=== PATIENT | female | born 1995 | race Caucasian/White ===

== ENCOUNTER 2017-11-25 08:44 | Emergency (ER) | payer MEDICAID ==
[~2017-11-25] VITALS: Ht 157.5 cm; Wt 68.0 kg
[2017-11-25] MEDS ORDERED: KETOROLAC 30MG/ML VIAL IV ONE (10:15)
[2017-11-25] MEDS ORDERED: PIPERACILLIN/TAZOBACTAM 3.375GM/50ML PREMIX IV ONE (10:15)
[2017-11-25] MEDS ORDERED: CEFTRIAXONE SODIUM 1 G/VIAL IM ONE (10:15)
[2017-11-25] MEDS ORDERED: VANCOMYCIN 1 G PREMIX 200 ML IV SCH ×2 (10:45→15:30)
[2017-11-25 10:46] LABS: BASOPHILS % 0.1 % (0.0-2.0); HEMATOCRIT. 37.8 % (36.0-48.0); LYMPHOCYTES % 8.2 % (20.0-50.0); MEAN CORPUSCULAR HEMOGLOBIN 30.6 pg (28.0-32.0); MEAN CORPUSCULAR VOLUME 88.9 fL (81.0-99.0); MONOCYTES % 8.6 % (2.0-8.0); NEUTROPHILS % 83.1 % (40.0-76.0); PLATELET 324 x1000/uL (130-400); RED BLOOD CELL COUNT 4.25 mill/uL (4.2-5.4); RED CELL DISTRIBUTION WIDTH 13.3 % (11.6-14.6)
[2017-11-25 10:59] LABS: CHLORIDE 102 mEq/L (98-107)
[2017-11-25 11:09] LABS: CLARITY URINE CLEAR (CLEAR); COLOR URINE YELLOW (YELLOW); KETONES URINE 2+ (NEGATIVE); LEUKOCYTE ESTERASE URINE 1+ (NEGATIVE); NITRITE URINE NEGATIVE (NEGATIVE); OCCULT BLOOD URINE 2+ (NEGATIVE); PROTEIN URINE TRACE (NEGATIVE); SPECIFIC GRAVITY URINE 1.021 (1.005-1.030)
[2017-11-25 11:21] LABS: HCG SCREEN NEGATIVE
[2017-11-25 12:01] LABS: *AMPHETAMINES SCREEN URINE NEGATIVE (NEGATIVE); *BARBITURATES SCREEN URINE NEGATIVE (NEGATIVE); *BENZODIAZEPINES SCREEN URINE NEGATIVE (NEGATIVE); *COCAINE SCREEN URINE NEGATIVE (NEGATIVE); METHADONE URINE SCREEN NEGATIVE (NEGATIVE); OPIATES URINE SCREEN NEGATIVE (NEGATIVE); PHENCYCLIDINE URINE SCREEN NEGATIVE (NEGATIVE)
[2017-11-25 12:07] LABS: CANNABINOID URINE SCREEN PRESUMTIVE POSITIVE (NEGATIVE)
[2017-11-25] MEDS ORDERED: POTASSIUM CHLORIDE 20MEQ TABLET SR PO ONE (14:15)
[2017-11-25 15:15] VITALS: BP 114/67
[2017-11-25] MEDS ORDERED: ACETAMINOPHEN 325MG TABLET PO PRN (15:30)
[2017-11-25] MEDS ORDERED: DIPHENHYDRAMINE 50MG/ML VIAL IV PRN (15:30)
[2017-11-25] MEDS ORDERED: HYDROCODONE/ACETAMINOPHEN 5/325MG TABLET PO PRN (15:30)
[2017-11-25] MEDS ORDERED: CLONIDINE 0.1MG TABLET PO PRN (15:30)
[2017-11-25] MEDS ORDERED: ONDANSETRON HCL 4MG/2ML VIAL IV PRN (15:30)
[2017-11-25] MEDS ORDERED: IPRATROPIUM/ALBUTEROL 0.5-3(2.5)MG/3ML NEB INH PRN (15:30)
== END 2017-11-25 16:00 | disposition left against medical advice (07) ==
LOC: ER 09:37 → EDBEDREQTM 14:21 → EDBEDREQ 14:21 → ENRESERV 15:46 → CANRESERV 15:46 → ER 16:00 → CANBEDREQ 18:56
DX: L03.115 Cellulitis of right lower limb (principal); N39.0 Urinary tract infection, site not specified; E87.6 Hypokalemia; J45.909 Unspecified asthma, uncomplicated; F17.200 Nicotine dependence, unspecified, uncomplicated; Z88.0 Allergy status to penicillin
CPT/HCPCS: 36415; 80048; 80305; 81003; 84703; 85025; 87040; 96365; 96366; 96375; 99285; J1885; J3370; Z7610; J0696